=== PATIENT | female | born 1975 | race Caucasian/White ===

== ENCOUNTER → 2021-02-23 | Outpatient (CLI) | payer OTHER ==
--- NOTE | 2021-02-23 09:11 | RAD ---
XR EXAM OF ANKLE_RIGHT 3VIEWS DATE: 02/23/2021 8:46 AM INDICATION: Reason: RIGHT ANKLE PAIN AND INJURY X 3 WEEKS AGO, NOT ANY BETTER / Spl. Instructions: / History: COMPARISON: None. FINDINGS: Bones: There is no evidence of acute fracture or dislocation. Joints: The ankle mortise is congruent. No widening of the distal tibiofibular syndesmosis. Miscellaneous: None. IMPRESSION: No evidence of acute fracture. Electronically signed by: Dane Shannon MD (02/23/2021 9:09 AM) [id number]
== END ==
LOC: PMG 08:37
PROVIDERS: ATTEND Nurse Practitioner Family
DX: M25.571 Pain in right ankle and joints of right foot (principal)
CPT/HCPCS: 73610